=== PATIENT | female | born 1960 | race Caucasian/White ===

== ENCOUNTER 2018-08-26 11:21 | Inpatient (IN) | payer OTHER ==
[2018-08-26 12:08] LABS: ADD MAN DIFF? NO
[2018-08-26 12:16] LABS: WHITE BLOOD COUNT 5.7 10^3/ul (4.8-10.8)
[2018-08-26 12:16] LABS: BASOPHILS % 0.7 % (0.0-2.0); EOSINOPHILS % 0.7 % (0.0-7.0); HEMATOCRIT 44.7 % (37.0-47.0); HEMOGLOBIN 14.8 g/dl (12.0-16.0); LYMPHOCYTES # 2.3 10^3/ul (0.8-2.9); MEAN CORPUSCULAR HGB CONC 33.1 g/dl (32.0-37.0); MEAN CORPUSCULAR VOLUME 90.5 fl (82.0-101.0); MEAN PLATELET VOLUME 9.1 fl (7.4-10.4); MONOCYTE # 0.4 10^3/ul (0.3-0.9); MONOCYTES % 7.1 % (0.0-11.0); NEUTROPHIL # 2.9 10^3/ul (1.6-7.5); NEUTROPHILS % 51.3 % (39.0-77.0); PLATELET COUNT 234 10^3/UL (140-415); RED BLOOD COUNT 4.94 10^6/ul (4.20-5.40)
[2018-08-26 12:32] LABS: ANION GAP 7 (5-13); BLOOD UREA NITROGEN 11 mg/dl (7-20); CALCIUM 9.1 mg/dl (8.4-10.2); CARBON DIOXIDE 27 mmol/L (21-31); CHLORIDE 109 mmol/L (97-110); CHOL/HDL RATIO 5.2 RATIO; CHOLESTEROL 264 mg/dl (100-200); CREATININE 0.57 mg/dl (0.44-1.00); Estimated GFR > 60 mL/min (>60); GLUCOSE 105 mg/dl (70-220); HDL CHOLESTEROL 50 mg/dl (37-92); LDL CHOLESTEROL,CALCULATED 196 mg/dl; POTASSIUM 4.7 mmol/L (3.5-5.1); SODIUM 143 mmol/L (135-144); TRIGLYCERIDES 92 mg/dl (0-149)
[2018-08-26 12:36] LABS: HEMOGLOBIN A1C 4.9 % (0-5.9)
[2018-08-26 12:39] LABS: INR 0.85; PROTIME 11.7 Sec (11.9-14.9); PT RATIO 0.9
[2018-08-26] MEDS: SOD CHLORIDE 0.9% 500 ML IV (12:39)
[2018-08-26] MEDS: LORAZEPAM 2 MG INJ IV (12:39)
[2018-08-26] MEDS: MECLIZINE 12.5 MG TAB PO (12:39)
[2018-08-26 12:40] LABS: PARTIAL THROMBOPLASTIN TIME 27.8 Sec (23.0-35.0)
[2018-08-26 12:48] LABS: TROPONIN-I < 0.012 ng/ml (0.000-0.120)
[2018-08-26] MEDS ORDERED: ACETAMINOPHEN 325 MG TAB PO (14:00)
[2018-08-26] MEDS ORDERED: ONDANSETRON 4 MG INJ IV ×2 (14:00→15:00)
[2018-08-26] MEDS: ASPIRIN 81 MG TAB PO (14:47)
[2018-08-26] MEDS ORDERED: NACL 0.9% 3 ML SYG IV (15:00)
[2018-08-26] MEDS ORDERED: hydrALAzine 20 MG INJ IV (15:00)
[2018-08-26] MEDS: ACETAMINOPHEN 325 MG TAB PO (15:21)
[2018-08-26] MEDS: AMLODIPINE 5 MG TAB PO (16:09)
[2018-08-26] MEDS ORDERED: HEPARIN 5,000 UNIT/1 ML VIAL SC (21:00)
[2018-08-26] MEDS: ATORVASTATIN 10 MG TAB PO (22:04)
[2018-08-26] MEDS: ALPRAZOLAM 0.5 MG TAB PO (22:05)
[2018-08-26] MEDS: FAMOTIDINE 20 MG INJ IV (22:05)
[2018-08-26] MEDS: HEPARIN 5,000 UNIT/1 ML VIAL SC (22:16)
[2018-08-26] MEDS ORDERED: MECLIZINE 12.5 MG TAB PO (22:30)
[2018-08-27] MEDS: CARISOPRODOL 350 MG TAB PO (04:34)
[2018-08-27 06:28] LABS: ADD MAN DIFF? NO
[2018-08-27 06:34] LABS: BASOPHIL # 0.1 10^3/ul (0.0-0.1); BASOPHILS % 0.8 % (0.0-2.0); EOSINOPHILS # 0.1 10^3/ul (0.0-0.5); EOSINOPHILS % 1.5 % (0.0-7.0); HEMATOCRIT 41.1 % (37.0-47.0); HEMOGLOBIN 13.6 g/dl (12.0-16.0); LYMPHOCYTES # 2.7 10^3/ul (0.8-2.9); LYMPHOCYTES % 44.8 % (15.0-51.0); MEAN CORPUSCULAR HEMOGLOBIN 29.8 pg (29.0-33.0); MEAN CORPUSCULAR HGB CONC 33.1 g/dl (32.0-37.0); MEAN CORPUSCULAR VOLUME 90.1 fl (82.0-101.0); MONOCYTE # 0.5 10^3/ul (0.3-0.9); MONOCYTES % 7.6 % (0.0-11.0); NEUTROPHIL # 2.7 10^3/ul (1.6-7.5); NEUTROPHILS % 45.1 % (39.0-77.0); PLATELET COUNT 237 10^3/UL (140-415); RED BLOOD COUNT 4.56 10^6/ul (4.20-5.40); RED CELL DISTRIBUTION WIDTH 12.6 % (11.5-14.5)
[2018-08-27 06:34] LABS: WHITE BLOOD COUNT 6.1 10^3/ul (4.8-10.8)
[2018-08-27 07:02] LABS: ALANINE AMINOTRANSFERASE 24 IU/L (13-69); ALBUMIN 3.8 g/dl (3.3-4.9); ALBUMIN/GLOBULIN RATIO 1.18; ALKALINE PHOSPHATASE 72 IU/L (42-121); ANION GAP 9 (5-13); ASPARTATE AMINO TRANSFERASE 21 IU/L (15-46); BILIRUBIN,INDIRECT 0.6 mg/dl (0-1.1); BILIRUBIN,TOTAL 0.6 mg/dl (0.2-1.3); BLOOD UREA NITROGEN 14 mg/dl (7-20); CALCIUM 8.4 mg/dl (8.4-10.2); CARBON DIOXIDE 24 mmol/L (21-31); CHLORIDE 112 mmol/L (97-110); CHOL/HDL RATIO 5.3 RATIO; CHOLESTEROL 237 mg/dl (100-200); CREATININE 0.66 mg/dl (0.44-1.00); Estimated GFR > 60 mL/min (>60); GLUCOSE 90 mg/dl (70-220); HDL CHOLESTEROL 44 mg/dl (37-92); LDL CHOLESTEROL,CALCULATED 168 mg/dl; MAGNESIUM 2.1 mg/dl (1.7-2.5); POTASSIUM 3.8 mmol/L (3.5-5.1); SODIUM 145 mmol/L (135-144); TRIGLYCERIDES 127 mg/dl (0-149)
[2018-08-27 07:05] LABS: HEMOGLOBIN A1C 4.9 % (0-5.9)
[2018-08-27 07:33] LABS: FREE THYROXINE INDEX (Calc) 2.76 ug/ml (0.65-3.89); T3 UPTAKE 37.8 % (23.5-40.5); T4 (THYROXINE) 7.3 ug/dl (5.5-11.0)
[2018-08-27] MEDS: FAMOTIDINE 20 MG INJ IV (09:00)
[2018-08-27] MEDS: ASPIRIN 81 MG TAB PO (09:00)
[2018-08-27] MEDS: AMLODIPINE 5 MG TAB PO (09:00)
[2018-08-27] MEDS: ACETAMINOPHEN 325 MG TAB PO ×2 (09:02→21:56)
[2018-08-27] MEDS: HEPARIN 5,000 UNIT/1 ML VIAL SC ×2 (09:14→21:53)
[2018-08-27] MEDS ORDERED: MECLIZINE 25 MG TAB PO (12:00)
[2018-08-27 19:59] LABS: ERYTHROCYTE SEDIMENTATION RATE 5 mm/Hr (0-30)
[2018-08-27] MEDS: MECLIZINE 25 MG TAB PO (21:41)
[2018-08-27] MEDS: ATORVASTATIN 10 MG TAB PO (21:41)
[2018-08-27] MEDS: FAMOTIDINE 20 MG TAB PO (21:41)
[2018-08-27] MEDS: ALPRAZOLAM 0.5 MG TAB PO (21:41)
[2018-08-28] MEDS: CARISOPRODOL 350 MG TAB PO (04:01)
[2018-08-28 08:55] LABS: ADD UMIC YES; UR ASCORBIC ACID NEGATIVE (NEGATIVE); UR BACTERIA MODERATE /HPF (NONE SEEN); UR BILIRUBIN (Dip) NEGATIVE (NEGATIVE); UR BLOOD (Dip) 1+ mg/dL (NEGATIVE); UR CLARITY SLIGHTLY CLOUDY (CLEAR); UR COLOR YELLOW (YELLOW); UR GLUCOSE (Dip) NEGATIVE (NEGATIVE); UR KETONES (Dip) NEGATIVE (NEGATIVE); UR LEUKOCYTE ESTERASE (Dip) NEGATIVE Leu/ul (NEGATIVE); UR MUCUS FEW /HPF (NONE SEEN); UR NITRITE (Dip) NEGATIVE (NEGATIVE); UR RBC 2 /HPF (0-5); UR SPECIFIC GRAVITY (Dip) 1.024 (1.003-1.030); UR TOTAL PROTEIN (Dip) NEGATIVE (NEGATIVE); UR UROBILINOGEN (Dip) NEGATIVE (NEGATIVE); UR WBC 6 /HPF (0-5)
[2018-08-28 09:10] LABS: AMPHETAMINE/METHAMPHETAMINE Negative (NEGATIVE); BARBITURATES Negative (NEGATIVE); CANNABINOIDS Negative (NEGATIVE); COCAINE Negative (NEGATIVE); OPIATES Negative (NEGATIVE)
[2018-08-28 09:34] LABS: BENZODIAZEPINES Positive (NEGATIVE)
[2018-08-28] MEDS: AMLODIPINE 5 MG TAB PO (09:38)
[2018-08-28] MEDS: FAMOTIDINE 20 MG TAB PO (09:38)
[2018-08-28] MEDS: MECLIZINE 25 MG TAB PO ×2 (09:39→13:15)
[2018-08-28] MEDS: ASPIRIN 81 MG TAB PO (09:39)
[2018-08-28] MEDS: HEPARIN 5,000 UNIT/1 ML VIAL SC (09:49)
[2018-08-28 15:46] LABS: RAPID PLASMA REAGIN NONREACTIVE (NR)
== END 2018-08-28 16:39 | disposition home or self-care (01) | DRG 69 ==
LOC: E/R 11:21 → TEL 13:54
PROVIDERS: Hospitalist
DX: G45.9 Transient cerebral ischemic attack, unspecified (principal); I10 Essential (primary) hypertension; R51 Headache; G80.9 Cerebral palsy, unspecified
CPT/HCPCS: 36415; 70450; 70544; 70551; 71045; 80048; 80053; 80061; 80307; 81001; 82962; 83036; 83735; 84100; 84436; 84443; 84479; 84484; 85025; 85610; 85651; 85730; 86592; 92610; 93005; 93306; 93880; 96374; 99285-25